=== PATIENT | male | born 1995 | race Caucasian/White ===

== ENCOUNTER 2017-05-25 16:12 | Emergency (ER) | payer OTHER ==
[~2017-05-25] VITALS: Ht 195.6 cm; Wt 78.0 kg
[~2017-05-25 16:12] MED LIST: Z.0.NO CURRENT MEDS
[2017-05-25 16:20] VITALS: BP 141/74; PULSE 102; RESP 18; TEMP 98.7; O2SAT 100
[2017-05-25] MEDS ORDERED: LIDOCAINE HCL 1% PF 30 ML VIAL ONE (18:08)
[2017-05-25] MEDS ORDERED: LIDOCAINE HCL 1% 50 ML VIAL INFIL ONE (18:15)
--- NOTE | 2017-05-25 18:19 | PD ---
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 He is here for a tetanus immunization. He has a 1 cm laceration to the palm with no active bleeding. He denies any pain. Symptom severity mild. No aggravating or alleviating factors. No paresthesia or weakness of the extremity. PFSH Past Medical History Medical History: Denies Significant Hx Autoimmune Disease: No Blood Disorders: No Cardiovascular Problems: No Genitourinary: No Musculoskeletal: Yes (RIGHT WRIST FX) Neurologic: No Psychiatric: No Respiratory: No Immunizations Current: Yes Influenza Vaccination: No PNEUMOCCOCAL Vaccine (Year): 2 Past Surgical History Appendectomy: Yes Other Surgery: No Social History Alcohol Use: No Tobacco Use: No Substance Use: No Allergies-Medications (Allergen,Severity, Reaction): Coded Allergies: penicillin G (Unverified Allergy, Intermediate, HIVES, 05/25/17) Reported Meds & Prescriptions Reported Meds & Active Scripts Active No Active Prescriptions or Reported Medications Review of Systems Except as stated in HPI: all other systems reviewed are Neg General / Constitutional: No: Fever Eyes: No: Visual changes HENT: No: Headaches Cardiovascular: No: Chest Pain or Discomfort Respiratory: No: Shortness of Breath Gastrointestinal: No: Abdominal Pain Physical Exam Narrative GENERAL: Alert and well-appearing 21-year-old male SKIN: 1 cm laceration to the left palm no active bleeding. HEAD: Normocephalic. EYES: No injection or drainage. NECK: Supple MUSCULOSKELETAL: No cyanosis, or edema. Left hand: Superficial 1 cm laceration to the lateral palm with no active bleeding. Wound edges are well approximated. No foreign body suspected. No irregularities palpated. He is able to flex and extend all fingers. Normal sensation. Brisk cap refill. Data Data Last Documented VS Vital Signs Date Time Temp Pulse Resp B/P (MAP) Pulse Ox O2 Delivery O2 Flow Rate FiO2 05/25/17 16:20 98.7 102 18 141/74 (96) 100 Orders Orders Lidocaine 1% Inj (50 Ml) (Xylocaine 1% I (05/25/17 18:15) Lidocaine Pf 1% Inj (Xylocaine-Mpf 1% In (05/25/17 18:08) Tetanus/Diphtheria Tox Adult (Tetanus/Di (05/25/17 18:30) Ed Discharge Order (05/25/17 18:19) MDM Medical Decision Making Medical Screen Exam Complete: Yes Emergency Medical Condition: Yes Differential Diagnosis Hand laceration, tendon injury, vascular injury Narrative Course 21-year-old male with superficial laceration to the left palm here seeking tetanus immunization. The wound was thoroughly cleansed. Wound was Dermabond closed. Tetanus immunization updated. Procedures Procedure Narrative LACERATION LOCATION: Left palm LENGTH: 0.5 NUMBER OF STITCHES/JASON: Dermabond REPAIR: The wound was copiously irrigated and explored without evidence of foreign body, tendon injury or neurovascular injury. The wound was closed using [Dermabond]. Diagnosis Primary Impression: Hand laceration Qualified Codes: S61.412A - Laceration without foreign body of left hand, initial encounter Referrals: Primary Care Physician Additional Instructions: Do not submerge the wound in water. Return if he develops signs or symptoms of infection which would include redness , swelling, drainage, increased pain Scripts No Active Prescriptions or Reported Meds Disposition: 01 DISCHARGE HOME Condition: Stable Tawana Man May 25, 2017 18:19
[2017-05-25] MEDS ORDERED: TETANUS/DIPHTHERIA TOXOID ADULT 0.5 ML VIAL IM ONE (18:30)
== END 2017-05-25 18:33 | disposition home or self-care (01) ==
LOC: PHEFT 16:12
DX: S61.411A Laceration without foreign body of right hand, initial encounter (principal); W26.8XXA Contact with other sharp object(s), not elsewhere classified, initial encounter; Y93.H3 Activity, building and construction; Y92.61 Building [any] under construction as the place of occurrence of the external cause; Z23 Encounter for immunization
CPT/HCPCS: 12001; 90714